=== PATIENT | male | born 2000 | race Caucasian/White ===

== ENCOUNTER 2022-09-13 16:45 | Emergency (ER) | payer OTHER, SELFPAY ==
[2022-09-13 16:46] VITALS: BP 146/83; PULSE 90; RESP 18; TEMP 37.1; O2SAT 96; BMI 33.7
[2022-09-13 17:00] VITALS: BP 121/80; PULSE 91; RESP 20; O2SAT 98
[2022-09-13 17:16] VITALS: BMI 33.7
--- NOTE | 2022-09-13 17:20 | CT_ITS ---
PROCEDURE INFORMATION: Exam: CT Abdomen And Pelvis With Contrast Exam date and time: 09/13/2022 6:26 PM Age: 22 years old Clinical indication: Abdominal pain; Localized; Right lower quadrant (rlq); Additional info: Rlq pain, concern for appendicitis TECHNIQUE: Imaging protocol: Computed tomography of the abdomen and pelvis with contrast. Radiation optimization: All CT scans at this facility use at least one of these dose optimization techniques: automated exposure control; mA and/or kV adjustment per patient size (includes targeted exams where dose is matched to clinical indication); or iterative reconstruction. Contrast material: ISOVUE; Contrast volume: 75 ml; Contrast route: IV; COMPARISON: No relevant prior studies available. FINDINGS: Lungs: Lung bases are unremarkable. Liver: No focal hepatic lesions. Gallbladder and bile ducts: Normal. No calcified stones. No ductal dilation. Pancreas: No peripancreatic fluid stranding. No main pancreatic ductal dilation. Spleen: Click gallbladderNo splenomegaly. Adrenal glands: The adrenal glands are normal. Kidneys and ureters: Right nephrogram is delayed. Mild right hydroureteronephrosis proximal to a 2 x 2 mm calculus in the mid ureter. Left kidney is unremarkable Stomach and bowel: Unremarkable. No obstruction. No mucosal thickening. Appendix: A normal appendix is identified. Intraperitoneal space: There is no evidence of free intraperitoneal or pelvic fluid. Vasculature: Unremarkable. No abdominal aortic aneurysm. Lymph nodes: No lymphadenopathy Urinary bladder: Urinary bladder is unremarkable. Reproductive: Unremarkable as visualized. Bones/joints: Unremarkable. No acute fracture. Soft tissues: Unremarkable. IMPRESSION: Mild right hydroureteronephrosis proximal to a 2 x 2 mm calculus in the mid ureter.
[2022-09-13 17:21] VITALS: BMI 33.7
--- NOTE | 2022-09-13 17:32 | PC.NURSE ---
PT GONE TO CT
[2022-09-13 17:34] LABS: Basophils # 0.1 K/mm3 (0-0.2); Basophils % 0.6 % (0.1-2.0); Eosinophils # 0.1 K/mm3 (0.0-0.4); Eosinophils % 0.5 % (0.1-12.0); Hematocrit 45.2 % (42.0-52.0); Hemoglobin 15.2 g/dL (14.1-18.0); Lymphocytes # 0.7 K/mm3 (0.7-4.5); Lymphocytes % 8.5 % (10-50); Mean Corpuscular HGB Conc 33.5 g/dL (31.8-35.4); Mean Corpuscular Hemoglobin 31.1 pg (27.0-31.2); Mean Corpuscular Volume 92.6 fl (80-94); Monocytes # 0.4 K/mm3 (0.1-1.0); Monocytes % 4.6 % (1.7-9.3); Neutrophils # 7.4 K/mm3 (1.8-7.8); Neutrophils % 85.8 % (37.0-80.0); Platelet Count 268 K/mm3 (142-424); Red Blood Count 4.88 M/mm3 (4.60-6.20); White Blood Count 8.6 K/mm3 (4.8-10.8)
[2022-09-13 17:35] LABS: Anion Gap 16.1 mEq/L (5-15); Blood Urea Nitrogen 6 mg/dl (9-20); Carbon Dioxide 26 mmol/L (22.0-30.0); Chloride 103 mmol/L (98-107); Potassium 4.1 mmoL/L (3.5-5.1); Sodium 141 mmol/L (136-145)
[2022-09-13 17:36] LABS: Alanine Aminotransferase 75 U/L (12-78); Albumin Level 4.6 g/dl (3.5-5.0); Albumin/Globulin Ratio 1.7 (1.1-1.8); Alkaline Phosphatase 121 U/L (38-126); Aspartate Amino Transferase 58 U/L (17-59); Bilirubin,Total 0.5 mg/dl (0.2-1.3); Calcium 9.2 mg/dl (8.4-10.2); Creatinine Clearance Estimated 194 mL/min (50-200); Estimated Glomerular Filt Rate 106 ml/min (>60); GFR (African American) 128 ML/MIN (>60); Globulin 2.7 g/dL (1.3-3.2); Glucose 113 mg/dl (74-100); Lipase 35 U/L (23-300); Total Protein,Serum 7.3 g/dl (6.3-8.2)
[2022-09-13 17:42] LABS: C-Reactive Protein 7.8 mg/L (0-4)
[2022-09-13 17:53] LABS: MANUAL DIFFERENTIAL MANUAL DIFFERENTIAL (MANUAL DIFF)
[2022-09-13 18:01] VITALS: BP 158/100; PULSE 89; RESP 20; O2SAT 97
[2022-09-13 18:09] LABS: Lymphocytes % 12 % (10-50); Monocytes % 4 % (2-9); Neutrophils % 84 % (42-76); Total Cells Counted 100
[2022-09-13 18:10] LABS: Platelet Estimate Normal; RBC Morphology Normal
[2022-09-13 18:41] LABS: Microscopic, Urine URINE MICROSCOPIC (MICROSCOPIC)
[2022-09-13 18:42] LABS: Appearance,Urine CLEAR (Clear); Bilirubin,Urine Negative (Negative); Blood, Urine 3+ (Negative); Color,Urine YELLOW (Yellow); Glucose,Urine (UA) Negative (Negative); Ketones,Urine Negative (Negative); Leukocyte Esterase,Urine Negative (Negative); Nitrate,Urine Negative (Negative); Protein,Urine Negative (Negative); Specific Gravity, Urine <= 1.005 (1.005-1.030); Urobilinogen,Urine 0.2 EU/dl (0.2)
--- NOTE | 2022-09-13 18:48 | [facility].EDABDPAI ---
Discharge Plan Disposition Patient Disposition: Home, Self-Care Prescriptions Prescriptions: New tamsulosin [Flomax] 0.4 mg capsule 0.4 mg PO Q24H Qty: 14 0RF ketorolac 10 mg tablet 10 mg PO Q6H PRN (Reason: pain) 5 Days Qty: 30 0RF Referrals Follow up/Referrals: Provider,Referral, [Primary Care Provider] - See instructions Clinical Impressions Clinical Impression: Nephrolithiasis Instructions Patient Instructions: Kidney Stones -- Adult, DI for Kidney Stones Discharge ED Provider: Adan Powell Abdominal Pain HPI General Chief Complaint: Abdominal Pain Stated Complaint: AbdPain Time Seen by Provider: 09/13/22 17:00 Mode of Arrival: EMS Source of Information: Patient Limitations: No Limitations Description of Symptoms (Recalled from ER Triage Doc. by RN): c/o lower right abdomen pain and passing out while in the bathroom during vomiting History of Present Illness HPI narrative: Patient is a 22-year-old male with no pertinent past medical history who presents with right lower quadrant pain. He says that around 130 this morning he got woke up with right lower quadrant pain. He says it is intermittently hurt throughout the day. It does not radiate from that area. He denies any urinary symptoms. Denies any fever or chills. No surgeries on his abdomen in the past. He rates the pain as a 8/10. He says it feels like a stabbing sensation. Nothing makes it better. Nothing makes it worse. Denies any chest pain. Denies any back pain. Related Data Previous Rx's Medication Instructions Recorded ketorolac 10 mg tablet 10 mg PO Q6H PRN pain 5 days #30 09/13/22 tabs tamsulosin 0.4 mg capsule (Flomax) 0.4 mg PO Q24H #14 caps 09/13/22 Allergies Allergy/AdvReac Type Severity Reaction Status Date / Time No Known Allergies Allergy Verified 09/13/22 17:17 PFSH PFSH Social History Smoking Status: Never smoker alcohol intake: never current occupational status: employed Travel in the last 8 weeks: None ROS Obtained: Yes All systems reviewed & no additional complaints except as documented A 14 point review of system was obtained and otherwise negative except per HPI Physical Exam General General appearance: alert and in no apparent distress Head Head exam: atraumatic, normocephalic and normal inspection Eye Eye exam: Present normal appearance, PERRL and EOMI ENT ENT exam: Present normal exam, normal oropharynx, mucous membranes moist, TM's normal bilaterally and normal external ear exam Neck Neck exam: Present normal inspection, full ROM and trachea midline; Absent meningismus or lymphadenopathy Chest Chest inspection: Present normal inspection and symmetric chest wall rise; Absent tenderness Respiratory Respiratory exam: Present normal lung sounds bilaterally; Absent respiratory distress Cardiovascular Cardiovascular exam: Present regular rate and normal rhythm; Absent JVD Abdominal Exam Abdominal exam: Present soft, tenderness, guarding, normal bowel sounds and tenderness at McBurney's Point; Absent distention Abdominal tenderness: Present RLQ Extremities Exam Extremities exam: Present normal inspection, full ROM and normal capillary refill; Absent calf tenderness Back Exam Back exam: Present normal inspection; Absent tenderness Neurological Exam Neurological exam: Present alert and oriented X3 Psychiatric Psychiatric exam: Present normal affect and normal mood Skin Skin exam: Present warm, dry, intact and normal color Lymphatic Lymphatic Findings: no adenopathy Medical Decision Making Medical Records Medical records reviewed: Yes I reviewed the patient's medical records. Edward Inquiry Pt receiving controlled substance: Yes Edward was queried for this patient: No Risks and benefits of using a controlled substance: were discussed with pt by me Vital Signs: 09/13/22 16:46 09/13/22 17:00 09/13/22 18:01 Temperature 98.7 F Temperature Source Oral Pulse Ra
[2022-09-13 18:49] LABS: Squamous Epithelial Cell,Urine Occasional #/hpf (0-5); WBC,Urine Occasional #/hpf (0-3)
[2022-09-13 18:56] VITALS: BP 134/84; PULSE 89; RESP 20; TEMP 37.1; O2SAT 97
== END 2022-09-13 18:59 | disposition home or self-care (01) ==
PROVIDERS: Emergency Provider Student in an Organized Health Care Education/Training Program
DX: N13.2 Hydronephrosis with renal and ureteral calculous obstruction (principal); Z79.899 Other long term (current) drug therapy
CPT/HCPCS: 74177; 80053; 81001; 83690; 85007; 85025; 86140; 96365; 96375; 99284; J2405; Q9967